=== PATIENT | male | born 1975 | race Two or more races ===

== ENCOUNTER 2023-02-07 11:06 | Outpatient (CLI) | payer OTHER ==
[~2023-02-07 11:06] MED LIST: COZAAR25 MG
== END 2023-02-07 11:14 | disposition home or self-care (01) ==
LOC: SONOGRAMA 11:06
PROVIDERS: ATTEND Pathology Anatomic Pathology & Clinical Pathology
DX: D34 Benign neoplasm of thyroid gland (principal); E07.9 Disorder of thyroid, unspecified; E04.1 Nontoxic single thyroid nodule; E04.9 Nontoxic goiter, unspecified